=== PATIENT | female | born 1975 | race Caucasian/White ===

== ENCOUNTER 2020-07-18 11:05 | Emergency (ER) | payer MEDICAID, SELFPAY ==
[~2020-07-18] VITALS: Ht 154.9 cm; Wt 49.5 kg
--- NOTE | 2020-07-18 11:30 | NUR ---
PT STATES THAT HAS HAD AN INFECTION ON LEFT FOREARM FOR LITTLE MORE THAN A COUPLE MONTHS THAT SHE WAS ON ANTIBIOTIC, BUT THE INFECTION HAS NOT GOTTEN BETTER. PT STATES SHE WOKE UP LAST NIGHT BECAUSE THE PAIN IN THE LEFT WRIST WAS BOTHERING HER WITH THROBBING AND ACHING IN THE WHOLE HAND.
--- NOTE | 2020-07-18 11:58 | NUR ---
PT STATES TAKES HERION DAILY AND NO OTHER DRUGS AND IS HEP C POSITIVE.
[2020-07-18 12:43] LABS: BASOPHILS % (AUTO) 1 % (0-1); EOSINOPHILS % (AUTO) 1 % (1-7); LYMPHOCYTES % (AUTO) 18 % (22-44); MEAN CORPUSCULAR HGB CONC 33.9 g/dL (32.4-35.8); MEAN PLATELET VOLUME 8.3 fL (7.4-10.4); MONOCYTES % (AUTO) 7 % (2-9); NEUTROPHILS % (AUTO) 73 % (42-75); PLATELET COUNT 315 x10^3/uL (130-400); RED BLOOD COUNT 4.92 x10^6/uL (3.82-5.3); RED CELL DISTRIBUTION WIDTH 14.9 % (9.6-15.2)
[2020-07-18 12:45] LABS: ALBUMIN 4.3 g/dL (3.4-5.0); ANION GAP 8 mmol/L (5-15); C-REACTIVE PROTEIN, QUANT 0.33 mg/dL (0.02-0.49); CALCIUM 10.2 mg/dL (8.5-10.1); CHLORIDE 106 mmol/L (98-107); CREATININE 0.68 mg/dL (0.55-1.02)
[2020-07-18 12:46] LABS: MD NO
--- NOTE | 2020-07-18 12:47 | NUR ---
ULTRASOUND GUIDED ACCESS OBTAINED BY FLETCHER DURANT WITH LABS OBTAINED
[2020-07-18 13:15] VITALS: BP 136/82
[2020-07-18 13:23] LABS: HCT (SEDRATE) 40.6 % (34.6-47.8)
--- NOTE | 2020-07-18 13:23 | NUR ---
Patient given discharge instructions and they have confirmed that they understand the instructions. Patient ambulatory with steady gait. No questions at time of discharge.
== END 2020-07-18 13:26 | disposition home or self-care (01) ==
LOC: ED 11:37
DX: L03.114 Cellulitis of left upper limb (principal); F11.20 Opioid dependence, uncomplicated
CPT/HCPCS: 36415; 80048; 82040; 85025; 85651; 86140; 99284

== ENCOUNTER 2020-08-31 14:10 | Emergency (ER) | payer MEDICAID ==
[~2020-08-31] VITALS: Ht 154.9 cm; Wt 51.0 kg
[2020-08-31 14:18] VITALS: BP 134/69
[2020-08-31] MEDS ORDERED: LIDOCAINE-MPF 1%, 5ML ONE ×2 (14:34→14:38)
--- NOTE | 2020-08-31 15:15 | NUR ---
Patient given discharge instructions and they have confirmed that they understand the instructions. Patient ambulatory with steady gait.
== END 2020-08-31 15:16 | disposition home or self-care (01) ==
LOC: ED 15:12
DX: L02.416 Cutaneous abscess of left lower limb (principal)
CPT/HCPCS: 10060; 99283

== ENCOUNTER 2020-10-31 10:50 | Emergency (ER) | payer MEDICAID ==
[~2020-10-31] VITALS: Ht 154.9 cm; Wt 53.1 kg
[2020-10-31 10:55] VITALS: BP 135/82
== END 2020-10-31 11:36 | disposition admitted as inpatient to this hospital (09) ==
LOC: ED 10:50
DX: L03.113 Cellulitis of right upper limb (principal); Z72.9 Problem related to lifestyle, unspecified
CPT/HCPCS: 99283; 99284